=== PATIENT | male | born 1955 | race Caucasian/White ===

== ENCOUNTER 2016-10-29 15:17 | Emergency (ER) | payer OTHER ==
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
[2016-10-29] MEDS ORDERED: MOTRIN PO ONE (19:04)
[2016-10-29] MEDS ORDERED: FLEXERIL PO ONE (19:05)
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
[2016-10-29 20:43] VITALS: BP 149/52
== END 2016-10-29 19:40 | disposition home or self-care (01) ==
LOC: ED 15:17
DX: S16.1XXA Strain of muscle, fascia and tendon at neck level, initial encounter (principal); S39.012A Strain of muscle, fascia and tendon of lower back, initial encounter; I10 Essential (primary) hypertension; E11.9 Type 2 diabetes mellitus without complications; V49.49XA Driver injured in collision with other motor vehicles in traffic accident, initial encounter; Y93.9 Activity, unspecified; Y92.9 Unspecified place or not applicable; Y99.9 Unspecified external cause status
CPT/HCPCS: 70450; 72125; 72128; 72131; 99283